=== PATIENT | female | born 1955 | race Two or more races ===

== ENCOUNTER 2024-12-03 10:54 | Inpatient (IN) | payer OTHER ==
[~2024-12-03] VITALS: Ht 160 cm; Wt 72.6 kg
[2024-12-03] MEDS ORDERED: LEVOTHYROXINE25 MCG (12:13)
[2024-12-03] MEDS ORDERED: SIMVASTATIN5 MG (12:13)
[2024-12-03] MEDS ORDERED: COZAAR25 MG (12:13)
[2024-12-03] MEDS ORDERED: LEXAPRO20 MG (12:14)
[2024-12-03] MEDS ORDERED: CLONAZEPAM2 MG (12:14)
[2024-12-03] MEDS ORDERED: PROAIR RESPICL90 MCG (12:14)
[2024-12-03] MEDS ORDERED: LAMICTAL100 M1 (12:14)
[2024-12-03] MEDS ORDERED: BUSPIRONE HCL10 MG (12:14)
[2024-12-03] MEDS ORDERED: SINGULAIR4 M1 (12:14)
[2024-12-03] MEDS ORDERED: BUDEO.25 (12:15)
--- NOTE | 2024-12-03 12:15 | NUR ---
PACIENTE ALERTA Y ORIENTADA X3 LA CUAL VIENE POR REFERIDO DE DRA GALICIA PARA QUE SEA ATENDIDA POR DR WILLARD CISSE CON DX DE APENDICITIS.
[2024-12-03] MEDS ORDERED: PIPERACILLIN/TAZOBACTAM SODIUM 3.375 GM VIAL IV ONE ×3 (12:40→23:49)
[2024-12-03] MEDS ORDERED: 0.9 % SODIUM CHLORIDE 1,000 ML IV SCH ×2 (12:45→19:15)
--- NOTE | 2024-12-03 13:33 | NUR ---
SE ORIENTA A PTE SOBRE TX MEDICO Y EL MISMO REFIERE ENTENDER. SE CANALIZA A PTE CON ANGIO #18, SE CRECOLECTAN MUESTRAS DE LAB Y SE ADMINISTRAN [facility] ORDEN MEDICA BAJO MEDIDAS ASEPTICAS.
[2024-12-03 13:57] LABS: HEMOGLOBIN 12.8 g/dL (12.0-15.00); MEAN CELL VOLUME 90.1 fL (80.00-100.00); MEAN CORPUSCULAR HEMOGLOBIN 30.4 pg (27.00-32.0); MEAN CORPUSCULAR HGB CONC 33.7 g/dl (32.0-36.0); PLATELET COUNT 492 K/uL (150-450); RED BLOOD COUNT 4.22 M/uL (4.00-6.00)
[2024-12-03 14:11] LABS: PH,URINE 5.5 (5.0-8.0); URINE APPEARANCE Clear; URINE BILIRRUBIN Negative (NEGATIVE); URINE BLOOD Negative; URINE COLOR Yellow; URINE GLUCOSE Negative (NEGATIVE); URINE KETONE Negative (NEGATIVE); URINE LEUKOCYTE Negative; URINE NITRATE Negative; URINE PROTEIN Trace (NEGATIVE); URINE UROBILINOGEN 0.2 E.U./dl
[2024-12-03 14:15] LABS: URINE BACTERIA 85.8 uL (0.0-1933); URINE EPITHELIAL CELLS 73.3 uL (0.0-38.8); URINE RBC 16.6 uL (0.0-20.8); URINE WBC 4.4 uL (0.0-23.2)
[2024-12-03 14:44] LABS: CALCIUM 9.7 mg/dL (8.5-10.1); CREATININE SERUM 0.73 mg/dL (0.55-1.02); GFR 79.52; PARTIAL THROMBOPLASTIN TIME 27.6 SECONDS (22.0-34.0); POTASSIUM 4.96 mEq/L (3.5-5.1); PROTHROMBIN TIME 10.9 SECONDS (9.0-11.5)
[2024-12-03] MEDS ORDERED: ACETAMINOPHEN 500 MG GEL..CAP PO PRN (19:30)
[2024-12-03] MEDS ORDERED: ONDANSETRON HCL 4 MG in 0.9 % SODIUM CHLORIDE 50 ML IV PRN (19:30)
[2024-12-03 23:27] VITALS: BP 109/65; O2SAT 95
[2024-12-04] MEDS ORDERED: PIPERACILLIN/TAZOBACTAM SODIUM 3.375 GM in DEXTROSE 5 % IN WATER 100 ML IV SCH
[2024-12-04 02:48] VITALS: BP 123/76
[2024-12-04] MEDS ORDERED: LEVOTHYROXINE SODIUM 25 MCG TABLET PO SCH (06:00)
[2024-12-04] MEDS ORDERED: LOSARTAN POTASSIUM 25 MG TABLET PO SCH (09:00)
[2024-12-04] MEDS ORDERED: ENOXAPARIN SODIUM 40 MG/0.4 ML SYRINGE SUBCUTANEO SCH (09:00)
[2024-12-04] MEDS ORDERED: BUSPIRONE HCL 5 MG TABLET PO SCH (09:00)
[2024-12-04] MEDS ORDERED: FAMOTIDINE/PF 20 MG in 0.9 % SODIUM CHLORIDE 8 ML IV PUSH SCH ×2 (09:00→21:00)
[2024-12-04 09:09] VITALS: BP 129/64; O2SAT 98
[2024-12-04] MEDS ORDERED: GUAIFENESIN 200 MG/10 ML BLIST.PACK PO SCH (12:00)
[2024-12-04] MEDS ORDERED: CLONAZEPAM 1 MG TABLET PO SCH (17:00)
[2024-12-04] MEDS ORDERED: SIMVASTATIN 20 MG TABLET PO SCH (17:00)
[2024-12-04 17:19] VITALS: BP 134/73; O2SAT 96
[2024-12-04] MEDS ORDERED: FAMOTIDINE/PF 20 MG/2 ML VIAL ONE (19:35)
[2024-12-04] MEDS ORDERED: fentaNYL CITRATE 50 MCG/ML AMPUL IV PUSH ONE (20:15)
[2024-12-04] MEDS ORDERED: MIDAZOLAM HCL 2 MG/2 ML VIAL IV PUSH ONE (20:15)
[2024-12-05 01:33] VITALS: BP 131/69
[2024-12-05 05:02] LABS: HEMATOCRIT 33.5 % (36.0-45.00); MEAN CELL VOLUME 91.4 fL (80.00-100.00); MEAN CORPUSCULAR HGB CONC 33.3 g/dl (32.0-36.0); PLATELET COUNT 392 K/uL (150-450); RED BLOOD COUNT 3.66 M/uL (4.00-6.00); RED CELL DISTRIBUTION WIDTH 14.6 % (11.5-14.5)
[2024-12-05 05:23] LABS: HEMOGLOBIN 11.1 g/dL (12.0-15.00); MEAN CORPUSCULAR HEMOGLOBIN 30.3 pg (27.00-32.0)
[2024-12-05 05:43] LABS: CALCIUM 8.1 mg/dL (8.5-10.1); CREATININE SERUM 0.65 mg/dL (0.55-1.02); GFR 90.91; POTASSIUM 4.37 mEq/L (3.5-5.1)
[2024-12-05 08:38] VITALS: BP 128/77; O2SAT 98
[2024-12-05 17:02] VITALS: BP 164/85; O2SAT 97
[2024-12-06 02:06] VITALS: BP 140/60
[2024-12-06 08:47] LABS: HEMATOCRIT 36.9 % (36.0-45.00); HEMOGLOBIN 12.1 g/dL (12.0-15.00); MEAN CORPUSCULAR HEMOGLOBIN 30.2 pg (27.00-32.0); MEAN CORPUSCULAR HGB CONC 32.8 g/dl (32.0-36.0); PLATELET COUNT 359 K/uL (150-450); RED BLOOD COUNT 4.02 M/uL (4.00-6.00); RED CELL DISTRIBUTION WIDTH 14.3 % (11.5-14.5)
[2024-12-06 09:04] VITALS: BP 155/70
[2024-12-06] MEDS ORDERED: VANCOMYCIN HCL 1,000 MG VIAL IV SCH (17:00)
[2024-12-06 17:46] VITALS: BP 134/65
[2024-12-07 06:57] LABS: CALCIUM 8.2 mg/dL (8.5-10.1); CREATININE SERUM 0.65 mg/dL (0.55-1.02); GFR 90.91; POTASSIUM 3.98 mEq/L (3.5-5.1)
[2024-12-07 08:59] VITALS: BP 141/71
[2024-12-07 17:33] VITALS: BP 148/74; O2SAT 97
[2024-12-08 02:39] VITALS: BP 146/65
[2024-12-08 07:35] LABS: HEMATOCRIT 33.9 % (36.0-45.00); HEMOGLOBIN 11.4 g/dL (12.0-15.00); MEAN CELL VOLUME 90.8 fL (80.00-100.00); MEAN CORPUSCULAR HEMOGLOBIN 30.6 pg (27.00-32.0); MEAN CORPUSCULAR HGB CONC 33.7 g/dl (32.0-36.0); PLATELET COUNT 332 K/uL (150-450); RED BLOOD COUNT 3.74 M/uL (4.00-6.00)
[2024-12-08 08:00] LABS: ALBUMIN 2.1 gm/dL (3.4-5.0); BILIRUBIN TOTAL 0.34 mg/dL (0.3-1.2); CALCIUM 8.4 mg/dL (8.5-10.1); CREATININE SERUM 0.77 mg/dL (0.55-1.02); GFR 74.77; GLOBULINA 3.1 G/DL (2.4-3.5); POTASSIUM 3.86 mEq/L (3.5-5.1); TOTAL PROTEIN 5.2 gm/dL (6.4-8.2)
[2024-12-08 09:04] VITALS: BP 150/73
[2024-12-08 16:00] VITALS: BP 152/70
[2024-12-09 02:02] VITALS: BP 118/62; O2SAT 95
[2024-12-09 08:53] VITALS: BP 137/62; O2SAT 98
[2024-12-09] MEDS ORDERED: DIATRIZOATE MEGLUMINE, SODIUM 30 ML BOTTLE PO NR (15:30)
[2024-12-09 16:00] VITALS: BP 149/69
[2024-12-10 01:41] VITALS: BP 143/68
[2024-12-10 07:21] LABS: CALCIUM 8.9 mg/dL (8.5-10.1); CREATININE SERUM 0.55 mg/dL (0.55-1.02); GFR 110.25
[2024-12-10 07:22] LABS: POTASSIUM 3.74 mEq/L (3.5-5.1)
[2024-12-10 08:43] VITALS: BP 138/68; O2SAT 94
[2024-12-10] MEDS ORDERED: METRONIDAZOLE/SODIUM CHLORIDE 100 ML IV SCH (17:00)
[2024-12-10 17:17] VITALS: BP 136/78; BP 156/78; O2SAT 96
[2024-12-10 17:22] LABS: HEMATOCRIT 36.3 % (36.0-45.00); HEMOGLOBIN 12.1 g/dL (12.0-15.00); MEAN CELL VOLUME 90.3 fL (80.00-100.00); MEAN CORPUSCULAR HGB CONC 33.2 g/dl (32.0-36.0); PLATELET COUNT 325 K/uL (150-450); RED BLOOD COUNT 4.02 M/uL (4.00-6.00); RED CELL DISTRIBUTION WIDTH 14.6 % (11.5-14.5)
[2024-12-10] MEDS ORDERED: AMPICILLIN SODIUM/SULBACTAM NA 3,000 MG VIAL IV SCH (18:00)
[2024-12-11 01:10] VITALS: BP 140/77; O2SAT 96
[2024-12-11 08:31] VITALS: BP 153/83; O2SAT 92
[2024-12-11 16:43] VITALS: BP 148/81; O2SAT 95
[2024-12-11] MEDS ORDERED: FAMOtidine 20 MG TABLET PO SCH (21:00)
[2024-12-12 00:24] VITALS: BP 137/60
[2024-12-12 09:07] VITALS: BP 160/78; O2SAT 95
[2024-12-12 12:08] VITALS: BP 149/80
[2024-12-12 17:39] VITALS: BP 160/66
[2024-12-13 00:40] VITALS: BP 140/57; O2SAT 95
[2024-12-13 09:11] VITALS: BP 140/70; O2SAT 94
== END 2024-12-13 10:03 | disposition home or self-care (01) | DRG 372 ==
LOC: ER 10:56 → MEDI 20:13 → SEC-K 20:13 → MEDI 23:23
PROVIDERS: Emergency Medicine; Internal Medicine; ADMIT Student in an Organized Health Care Education/Training Program; ATTEND Student in an Organized Health Care Education/Training Program
PROC: 0W9F30Z Drainage of Abdominal Wall with Drainage Device, Percutaneous Approach (ICD-10-PCS; principal; 2024-12-04)
PROC: 0D9P30Z Drainage of Rectum with Drainage Device, Percutaneous Approach (ICD-10-PCS; 2024-12-04)
PROC: 0WPGX3Z Removal of Infusion Device from Peritoneal Cavity, External Approach (ICD-10-PCS; 2024-12-10)
DX: K35.33 Acute appendicitis with perforation, localized peritonitis, and gangrene, with abscess (principal); K61.1 Rectal abscess; L02.211 Cutaneous abscess of abdominal wall; I10 Essential (primary) hypertension; E03.9 Hypothyroidism, unspecified; E78.5 Hyperlipidemia, unspecified; B96.20 Unspecified Escherichia coli [E. coli] as the cause of diseases classified elsewhere; B95.2 Enterococcus as the cause of diseases classified elsewhere; B96.89 Other specified bacterial agents as the cause of diseases classified elsewhere

== ENCOUNTER → 2024-12-03 | Outpatient (CLI) | payer OTHER ==
[~2024-12-03] MED LIST: BUDEO.25; BUSPIRONE HCL10 MG; CLONAZEPAM2 MG; COZAAR25 MG; LAMICTAL100 M1; LEVOTHYROXINE25 MCG; LEXAPRO20 MG; PROAIR RESPICL90 MCG; SIMVASTATIN5 MG; SINGULAIR4 M1
== END | disposition home or self-care (01) ==
LOC: TOM 08:13
PROVIDERS: ATTEND Surgery
DX: C50.411 Malignant neoplasm of upper-outer quadrant of right female breast (principal)
CPT/HCPCS: 71250; 74178; Q9965

== ENCOUNTER 2025-01-18 06:00 | Day surgery (SDC) | payer OTHER ==
[2025-01-15 10:25] VITALS: BP 124/84
[~2025-01-18] VITALS: Ht 157.5 cm; Wt 76.2 kg
[2025-01-18] MEDS ORDERED: CHLORHEXIDINE GLUCONATE 120 ML BOTTLE TOP ONE (16:45)
[2025-01-18] MEDS ORDERED: CEFAZOLIN SODIUM 1,000 MG VIAL IV ONE (16:45)
== END 2025-01-18 21:50 | disposition home or self-care (01) ==
LOC: CIR.AMB 06:00
PROVIDERS: ATTEND Surgery
DX: C50.411 Malignant neoplasm of upper-outer quadrant of right female breast (principal); R59.0 Localized enlarged lymph nodes; I10 Essential (primary) hypertension; J45.909 Unspecified asthma, uncomplicated; E03.8 Other specified hypothyroidism; F32.9 Major depressive disorder, single episode, unspecified; F41.0 Panic disorder [episodic paroxysmal anxiety]